=== PATIENT | female | born 1975 | race Caucasian/White ===

== ENCOUNTER 2017-12-08 14:38 | Day surgery (SDC) | payer OTHER ==
[2017-12-08] MEDS ORDERED: LIDOCAINE 1% 2 ML INJ ID PRN (14:54)
[2017-12-08] MEDS ORDERED: LR 1,000 ML IV ONE (14:54)
[2017-12-08] MEDS ORDERED: INDOMETHACIN 50 MG SUPP PR PRN (15:32)
--- NOTE | 2017-12-08 15:32 | PDGENHP ---
History & Physical Chief Complaint: iron def History of Present Illness: 42 year old female with a pior incomplete colonoscopy presents for evaluation of iron deficiency anemia, hematocheza, and loose stools Pertinent Past, Social, Family History: See anesthesiology note Relevant Physical Exam: HEENT: anicteric. CV: RRR +s1s2. Lungs: CTAB. Abd: soft, nt, +BS Cardiorespiratory Assessment: ASA 2
--- NOTE | 2017-12-08 15:33 | PDANEPAE ---
ANE History of Present Illness blood per rectum, family h/o GI ca, here for colonoscopy ANE Past Medical History - Cardiovascular History Hx Hypertension: No Hx Arrhythmias: No Hx Chest Pain: No Hx Coronary Artery / Peripheral Vascular Disease: No Hx CHF / Valvular Disease: No Hx Palpitations: No Cardiovascular History Comment: MVP - Pulmonary History Hx COPD: No Hx Asthma/Reactive Airway Disease: No Hx Recent Upper Respiratory Infection: No Hx Oxygen in Use at Home: No Hx Sleep Apnea: No Sleep Apnea Screening Result - Last Documented: Negative - Neurologic History Hx Cerebrovascular Accident: No Hx Seizures: No Hx Dementia: No - Endocrine History Hx Diabetes: No - Renal History Hx Renal Disorders: No - Liver History Hx Hepatic Disorders: No - Neurological & Psychiatric Hx Hx Neurological and Psychiatric Disorders: No - Cancer History Hx Cancer: No - Congenital Disorder History Hx Congenital Disorders: No - GI History Hx Gastrointestinal Disorders: Yes Gastrointestinal History Comment: IBS - Other Health History Other Health History: ECZEMA HANDS. ANEMIA - Chronic Pain History Chronic Pain: No - Surgical History Prior Surgeries: COLONOSCOPY. ANE Review of Systems Review of Systems: - Exercise capacity METS (RN): 4 METS ANE Patient History - Allergies Allergies/Adverse Reactions: latex Allergy (Verified 12/04/17 18:57) ECZEMA - Home Medications Home medications: home medication list seen and reviewed Home Medications: Advil PRN 12/04/17 [Last Taken Unknown] Herbals/Supplements -Info Only 12/04/17 [Last Taken Unknown] Iron DAILY 12/04/17 [Last Taken Unknown] - NPO status NPO Since - Liquids (Date): 12/08/17 NPO Since - Liquids (Time): 12:30 NPO Since - Solids (Date): 12/07/17 NPO Since - Solids (Time): 09:00 - Anes Hx Anes Hx: post operative nausea (nauseous during C/S) - Smoking Hx Smoking Status: Never smoked - Alcohol Use Alcohol Use: Rarely - Family Anes Hx Family Anes Hx: none ANE Labs/Vital Signs - Vital Signs Blood Pressure: 132/88 Heart Rate: 109 Respiratory Rate: 12 O2 Sat (%): 95 Height: 167.64 cm Weight: 77.111 kg ANE Physical Exam - Airway Neck exam: FROM Mallampati Score: Class 2 Mouth exam: normal dental/mouth exam - Pulmonary Pulmonary: no respiratory distress, clear to auscultation - Cardiovascular Cardiovascular: regular rate and rhythym, no murmur, rub, or gallop - ASA Status ASA Status: II ANE Anesthesia Plan Anesthesia Plan: GA with mask Total IV Anesthesia: Yes
[2017-12-08] MEDS ORDERED: NS 500 ML IV SCH (15:45)
--- NOTE | 2017-12-08 16:23 | GIREPORT ---
[facility] Surgical Services - Endoscopy Department Patient Name: Evy Garber Procedure Date: 12/08/2017 3:28 PM Patient Type: Outpatient Attending MD/ ER Physician: Griffin Ritter MD Procedure: Colonoscopy Indications: Clinically significant diarrhea of unexplained origin, Iron deficiency anemia, hematochezia. Patient Profile: 42 year old female presents for evaluation of iron deficiency anemia/lo ose stools/hematochezia. Providers: Griffin Ritter MD Medicines: Monitored Anesthesia Care Complications: No immediate complications. Estimated blood loss: Minimal. Description of Procedure: After obtaining informed consent, the scope was passed under direct vis ion. Throughout the procedure, the patient's blood pressure, pulse, and oxyg en saturations were monitored continuously. The Colonoscope with irrigatio n channel was introduced through the anus and advanced to the cecum, identified by appendiceal orifice and ileocecal valve. The colonoscopy was performed without difficulty. The patient tolerated the procedure well. The quality of the bowel preparation was good. The ileocecal valve, appendi ceal orifice, and rectum were photographed. Findings: The perianal and digital rectal examinations were normal. Pertinent negatives include no palpable rectal lesions. The terminal ileum appeared normal. The colon (entire examined portion) appeared normal. Biopsies for histo logy were taken with a cold forceps for evaluation of microscopic colitis. Estimated Blood Loss: Estimated blood loss was minimal. Post Op Diagnosis: - The examined portion of the ileum was normal. - The entire examined colon is normal. Biopsied. - Etiology? No obvious cause of symptoms seen. Suspect gross blood is hemorrhoidal in absence of other causes. Recommendation: - Discharge patient to home (with escort). - Resume previous diet. - To visualize the small bowel, perform video capsule endoscopy at appointment to be scheduled. - Continue present medications. - Return to GI office in 6 weeks. - Repeat colonoscopy in 5 years for surveillance. - Thank you for allowing me to participate in the care of your patient. Attending Participation: I personally performed the entire procedure. Griffin Ritter MD Griffin Ritter MD 12/08/2017 4:22:44 PM This report has been signed electronicallyGriffin Ritter MD Number of Addenda: 0 Note Initiated On: 12/08/2017 3:28 PM Total Procedure Duration Time 0 hours 28 minutes 38 seconds [email or web address]
[2017-12-08] MEDS ORDERED: NALOXONE HCL 0.4 MG/ML INJ IVP PRN (16:58)
--- NOTE | 2017-12-08 16:59 | POSTANESTH ---
Post Anesthetic Evaluation Cardiovascular Status: Normal, Stable, Similar to Pre-Op Cond Respiratory Status: Normal, Stable, Similar to Pre-op Cond. Level of Consciousness/Mental Status: Can Participate in Eval, Alert and Oriented Pain Control: Adequate, Prn Tx Ordered Nausea/Vomiting Control: Adequate, Prn Tx Ordered Complications Possibly Related to Anesthesia: None Noted
[2017-12-08 17:08] VITALS: BP 126/83
== END 2017-12-08 17:30 | disposition home or self-care (01) ==
LOC: FSGY 14:38
PROVIDERS: ATTEND Internal Medicine Gastroenterology
PROC: 0DBE0ZX Excision of Large Intestine, Open Approach, Diagnostic (ICD-10-PCS; principal; 2017-12-08 16:15)
DX: D50.9 Iron deficiency anemia, unspecified (principal); R19.7 Diarrhea, unspecified